=== PATIENT | male | born 1960 | race Caucasian/White ===

== ENCOUNTER → 2018-03-21 | Outpatient (CLI) | payer OTHER ==
--- NOTE | 2018-03-21 11:55 | XR ---
EXAMINATION TYPE: XR chest 2V DATE OF EXAM: 03/21/2018 COMPARISON: NONE TECHNIQUE: PA and lateral views submitted. HISTORY: Chest pain FINDINGS: The lungs are clear and there is no pneumothorax, pleural effusion, or focal pneumonia. [facility]. No overt failure. Degenerative change of the spine. Hyperinflation suggests COPD. IMPRESSION: 1. No acute process.
== END | disposition home or self-care (01) ==
LOC: RADXRMAIN 11:27
PROVIDERS: ATTEND Nurse Practitioner Adult Health
DX: C18.2 Malignant neoplasm of ascending colon (principal); N42.89 Other specified disorders of prostate
CPT/HCPCS: 71046

== ENCOUNTER 2018-05-16 10:44 | Day surgery (SDC) | payer OTHER ==
[2018-05-14 11:07] VITALS: BMI 23.6
[~2018-05-16 10:44] MED LIST: ALPRAZolam 0.25 MG TAB PO PRN; ALPRAZolam 0.5 MG TAB PO PRN; ASPIRIN 325 MG TAB PO STA; ATORVASTATIN 80 MG TAB PO STA; NITROGLYCERIN SL TABS 0.4 MG TAB SUBLINGUAL PRN; SODIUM CHLORIDE 0.9% 1,000 ML in EMPTY BAG 1 BAG IV ONE
[2018-05-16] MEDS ORDERED: LIDOCAINE 1% INJ 10MG/ML (20 ML MDV) ONE (11:54)
[2018-05-16] MEDS ORDERED: MIDAZOLAM 2 MG/2 ML VIAL ONE (11:54)
[2018-05-16] MEDS ORDERED: fentaNYL (PF) 50 MCG/ML 2 ML AMP ONE (11:54)
[2018-05-16 11:55] LABS: Anion Gap 11 mmol/L; Blood Urea Nitrogen 15 mg/dL (9-20); Calcium 9.3 mg/dL (8.4-10.2); Carbon Dioxide 23 mmol/L (22-30); Chloride 108 mmol/L (98-107); Glucose 97 mg/dL (74-99); Sodium 142 mmol/L (137-145)
[2018-05-16] MEDS ORDERED: fentaNYL (PF) 50 MCG/ML 2 ML AMP IV ONE (12:08)
[2018-05-16] MEDS: MIDAZOLAM 2 MG/2 ML VIAL IV ONE ×2 (12:08→12:11)
[2018-05-16] MEDS ORDERED: LIDOCAINE 1% INJ 10MG/ML (20 ML MDV) SQ ONE (12:12)
[2018-05-16] MEDS ORDERED: TICAGRELOR 90 MG TAB ONE (12:29)
[2018-05-16] MEDS ORDERED: BIVALIRUDIN BOLUS 250 MG/50 ML IV ONE (12:31)
[2018-05-16] MEDS ORDERED: TICAGRELOR 90 MG TAB PO ONE (12:31)
[2018-05-16] MEDS ORDERED: BIVALIRUDIN 250 MG in SODIUM CHLORIDE 0.9% 50 ML IV ONE (12:31)
[2018-05-16] MEDS ORDERED: NITROGLYCERIN 1000MCG/10ML SYRINGE INTRACORON ONE (12:39)
[2018-05-16] MEDS ORDERED: IOPAMIDOL-370 125ML BTL INJ ONE (12:43)
[2018-05-16] MEDS ORDERED: NITROGLYCERIN 1000MCG/10ML SYRINGE INTRAARTER ONE (12:43)
[2018-05-16] MEDS ORDERED: IOPAMIDOL-370 50ML BTL INJ ONE (12:43)
[2018-05-16] MEDS ORDERED: PROCHLORPERAZINE 10 MG TAB PO PRN (12:55)
[2018-05-16] MEDS ORDERED: NITROGLYCERIN SL TABS 0.4 MG TAB SUBLINGUAL PRN ×2 (12:55→12:56)
[2018-05-16] MEDS ORDERED: DIPHENOX-ATROP 2.5-0.025 MG 1 EACH TAB PO PRN (12:55)
[2018-05-16] MEDS ORDERED: diphenhydrAMINE 25 MG CAP PO PRN (12:55)
[2018-05-16] MEDS ORDERED: RX INFO: IV CONTRAST WAS GIVEN 1 EACH MISC MISCELLANE PRN (12:56)
[2018-05-16] MEDS ORDERED: ZOLPIDEM 5 MG TAB PO PRN (12:56)
[2018-05-16] MEDS ORDERED: MAG HYDROX/AL HYDROX/SIMETH 30 ML CUP PO PRN (12:56)
[2018-05-16] MEDS ORDERED: ATROPINE SULFATE 0.1 MG/ML 10ML SYRINGE IV PRN (12:56)
[2018-05-16] MEDS ORDERED: diphenhydrAMINE 50 MG/ML 1 ML VIAL ONE (12:57)
[2018-05-16] MEDS ORDERED: LIDOCAINE-PRILOCAINE 2.5-2.5% CREAM 5 GM TUBE TOPICAL PRN (13:00)
[2018-05-16] MEDS ORDERED: SODIUM CHLORIDE 0.9% 1,000 ML IV SCH (13:00)
[2018-05-16] MEDS ORDERED: diphenhydrAMINE 50 MG/ML 1 ML VIAL IVP ONE (13:04)
[2018-05-16] MEDS ORDERED: ACETAMINOPHEN IV (For NPO) 1,000 MG in EMPTY BAG 1 BAG IVPB ONE (13:30)
--- NOTE | 2018-05-16 17:01 | CC ---
CARDIAC CATHETERIZATION REPORT Mr. Rees was seen in the office for evaluation of chest pain. This patient had been having intermittent chest discomfort after 5-FU injection. Patient has been diagnosed to have colon cancer. Stress test showed evidence of basal ischemia. In view of that, the patient was recommended cardiac catheterization for definitive diagnosis. PROCEDURE: The right groin was prepped and draped in the usual manner and the skin was infiltrated with 2% Xylocaine. The right femoral artery was entered using Seldinger technique. A #6 Korean sheath was placed in. Selective coronary angiography was then performed in multiple projections and the left ventricular pressures were obtained. The patient tolerated the procedure well. Moderate sedation was used. Total sedation time was 14 minutes. HEMODYNAMICS: The left ventricular end-diastolic pressure was 8 to 12 mmHg prior to angiography. No gradient was noted across the aortic valve. SELECTIVE CORONARY ANGIOGRAPHY: Left main coronary artery is a good-caliber blood vessel. LAD is a good caliber blood vessel and gives rise to a good-sized diagonal branch. Distal LAD way near the apex has a 70% stenosis, beyond which it was a very limited distribution. Circumflex coronary artery is a good-caliber blood vessel. Very proximal circumflex has about 50% stenosis. Then there is another area of 99% stenosis before it bifurcates into the obtuse marginal branch and distal circumflex branch. Right coronary artery has mild disease. There is retrograde filling of the obtuse marginal branch noted. FINAL IMPRESSION: This study shows very proximal circumflex coronary artery 50% stenosis. Subsequent to that, there is a 99% subtotal stenosis of circumflex coronary artery. The distal LAD way near the apex has an 80% stenosis with a limited distribution beyond the stenosis. Right coronary artery has mild irregularity. RECOMMENDATIONS: We will proceed with a stent to the circumflex coronary artery. MMODL / IJN: [id number] /
[2018-05-16] MEDS: PANTOPRAZOLE 40 MG TABLET PO SCH (17:21)
[2018-05-16] MEDS ORDERED: LORATADINE 10 MG TAB PO SCH (21:00)
[2018-05-16] MEDS ORDERED: diphenhydrAMINE 25 MG CAP PO SCH (21:00)
[2018-05-16] MEDS ORDERED: ATORVASTATIN 80 MG TAB PO SCH (21:00)
[2018-05-16] MEDS ORDERED: ACETAMINOPHEN TAB 500 MG TAB PO SCH (21:00)
[2018-05-16] MEDS: TICAGRELOR 90 MG TAB PO SCH (21:21)
[2018-05-17] MEDS: PANTOPRAZOLE 40 MG TABLET PO SCH (05:58)
[2018-05-17 06:22] LABS: Anion Gap 9 mmol/L; Blood Urea Nitrogen 13 mg/dL (9-20); Calcium 8.9 mg/dL (8.4-10.2); Carbon Dioxide 20 mmol/L (22-30); Chloride 109 mmol/L (98-107); Glucose 97 mg/dL (74-99); Potassium 4.1 mmol/L (3.5-5.1); Sodium 138 mmol/L (137-145)
[2018-05-17 06:50] LABS: Anisocytosis Slight; Basophils % (A) 0 %; Eosinophils # (A) 0.1 k/uL (0-0.7); Eosinophils % (A) 2 %; HCT 43.8 % (39.0-53.0); HGB 14.5 gm/dL (13.0-17.5); Lymphocytes # (A) 2.3 k/uL (1.0-4.8); Lymphocytes % (A) 48 %; MCH 30.1 pg (25.0-35.0); MCHC 33.1 g/dL (31.0-37.0); MCV 90.9 fL (80.0-100.0); Mean Platelet Volume 7.3; Monocytes # (A) 0.4 k/uL (0-1.0); Monocytes % (A) 8 %; Neutrophils # (A) 1.8 k/uL (1.3-7.7); Neutrophils % (A) 38 %; Platelet Count 118 k/uL (150-450); RBC 4.82 m/uL (4.30-5.90); RDW 17.4 % (11.5-15.5); WBC 4.8 k/uL (3.8-10.6)
[2018-05-17 07:49] VITALS: RESP 18
[2018-05-17] MEDS: TICAGRELOR 90 MG TAB PO SCH (07:56)
[2018-05-17] MEDS ORDERED: ASPIRIN 81 MG PO SCH (09:00)
[2018-05-17] MEDS ORDERED: ACYCLOVIR 200 MG CAP PO SCH (09:00)
--- NOTE | 2018-05-17 11:06 | PTCA ---
PERCUTANEOUSTRANS CORORONARY ANGIOGRAPHY DATE OF SERVICE: May 16, 2018 PERFORMING PHYSICIAN: Didier Osei MD, assistant professor of drama. PROCEDURE PERFORMED: Successful stenting of the mid left circumflex using 2.75 x 15 mm Xience PINKY with good angiographic results. INDICATION: This is a pleasant 57-year-old gentleman who sees Dr. Bee as an outpatient who was experiencing chest discomfort and underwent myocardial perfusion imaging, stress test that showed inferolateral ischemia. A heart catheterization was recommended. The patient underwent heart catheterization by Dr. Bee earlier today and that revealed severe critical disease involving the mid left circumflex. APPROACH: Right common femoral artery. COMPLICATION: None. LEVEL OF SEDATION: Moderate with sedation length of 20 minutes. PROCEDURE DESCRIPTION: After diagnostic heart catheterization was performed by Dr. Bee and after reviewing the angiogram, we decided to pursue with intervention on the left circumflex. Anticoagulation was initiated using Angiomax. Subsequently I did engage the left main using an XP35 guide. I did wire the left circumflex using a whisper wire. Subsequently I did balloon angioplasty using 2.0 x 12 mm balloon before I deployed 2.75 x 15 mm Xience PINKY where the stent was positioned under fluoroscopy guidance and deployed under 10 atmospheres for 20 seconds. The following angiogram showed good angiographic results and the procedure was completed without any complication. POSTPROCEDURE MANAGEMENT: 1. Dual anti-platelet therapy. 2. Risk factor modifications. 3. Follow up with the patient. MMJUDITH / MAIKOL: [id number] /
[2018-05-17 11:19] VITALS: BP 146/69; PULSE 60; TEMP 97.1
--- NOTE | 2018-05-17 12:27 | P.PN ---
Subjective Progress Note Date: 05/17/18 Discharge note This is a 57-year-old gentleman with colon cancer, who developed chest discomfort after 5FU injection. This reason he was brought to the hospital to undergo cardiac catheterization. Cardiac catheterization showed very proximal circumflex coronary artery 50% stenosis. Subsequent to that he was a 99% subtotal stenosis of the circumflex artery. Distal LAD near the apex had an 80% stenosis with a limited distribution beyond the stenosis. Right coronary artery and mild irregularity. Patient underwent angioplasty and stenting of the circumflex artery. Seen and examined this morning, denies any chest pain or difficulty in breathing. EKG shows normal sinus Rhythm with no changes from post-PCI. White blood cell count is normal, hemoglobin 14.5, platelet count 118. Sodium 138, potassium 4.1, BUN/creatinine 13, creatinine 0.9. Objective - Vital Signs Vital signs: Vital Signs Temp 97.1 F L 05/17/18 11:18 Pulse 60 05/17/18 11:18 Resp 18 05/17/18 11:18 BP 146/69 05/17/18 11:18 Pulse Ox 97 05/17/18 11:18 Intake & Output 05/16/18 05/17/18 05/17/18 18:59 06:59 18:59 Intake Total 328.4 480 236 Balance 328.4 480 236 Weight 84.368 kg 82.3 kg Intake: IV 148.4 Oral 180 480 236 Other: Voiding Method Toilet Urinal # Voids 1 - Exam Physical examination HEENT normal Lungs clear to auscultation and percussion Heart S1-S2 normal, no murmur or gallop. Right groin soft, no evidence of any hematoma, no bruit heard Abdomen is soft, nontender, bowel sounds heard Extremities reveal 2+ peripheral pulses with no evidence of any peripheral edema. - Labs CBC & Chem 7: 05/17/18 05:49 05/17/18 05:49 Labs: Abnormal Lab Results - Last 24 Hours (Table) 05/17/18 05/17/18 Range/Units 05:49 05:49 RDW 17.4 H (11.5-15.5) % Plt Count 118 L (150-450) k/uL Chloride 109 H (98-107) mmol/L Carbon Dioxide 20 L (22-30) mmol/L Assessment and Plan Plan: Assessment and plan #1 status post angioplasty with stent placement of the circumflex artery #2: Colon cancer status post 5-FU injection #3 hyperlipidemia #4 nicotine dependence Plan Patient may be able to be discharged home today. We'll make follow-up appointment in the office in one week's time. He will be discharged home on aspirin 81 mg daily, Lipitor 80 mg daily, Effient 10 mg daily, Lopressor 12-1/2 mg one tablet by mouth twice a day. sublingual nitroglycerin as needed for chest pain.
[2018-05-17] MEDS ORDERED: METOPROLOL TARTRATE 12.5 MG TAB PO SCH (12:30)
== END 2018-05-17 12:30 | disposition home or self-care (01) ==
LOC: CATHCVL 10:44 → 6SEL 12:48 → CATHCVL 05-17 12:30
PROVIDERS: ATTEND Internal Medicine Cardiovascular Disease
DX: I25.10 Atherosclerotic heart disease of native coronary artery without angina pectoris (principal); R00.1 Bradycardia, unspecified; R94.39 Abnormal result of other cardiovascular function study; C18.9 Malignant neoplasm of colon, unspecified; Z90.49 Acquired absence of other specified parts of digestive tract; Z92.21 Personal history of antineoplastic chemotherapy; E78.5 Hyperlipidemia, unspecified; Z82.49 Family history of ischemic heart disease and other diseases of the circulatory system; F17.210 Nicotine dependence, cigarettes, uncomplicated; Z79.899 Other long term (current) drug therapy; Z88.6 Allergy status to analgesic agent; Z88.1 Allergy status to other antibiotic agents; Z88.8 Allergy status to other drugs, medicaments and biological substances
CPT/HCPCS: 94760; 93458; 80048 ×2; 85025; C9600; C1769 ×2; C1725; C1887; C1894; C1874; C1760; J2250; J1200; J2001; J3010; J0583; J0131; Q9967 ×2

== ENCOUNTER 2018-05-20 11:07 | Inpatient (IN) | payer OTHER ==
[2018-05-20] MEDS ORDERED: KETOROLAC 60 MG/2 ML VIAL IVP STA (11:37)
[2018-05-20] MEDS ORDERED: HYDROmorphone 0.5 MG/0.5 ML SYRINGE IVP STA ×2 (11:38→15:30)
[2018-05-20] MEDS ORDERED: DIPH,PERTUS(ACELL)TETVAC-LF 0.5 ML VIAL IM ONE (11:38)
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
--- NOTE | 2018-05-20 12:31 | XR ---
EXAMINATION TYPE: XR chest 2V, XR sternum DATE OF EXAM: 05/20/2018 COMPARISON: Prior chest x-ray 03/21/2018 HISTORY: Difficulty breathing TECHNIQUE: Frontal and lateral views of the chest are obtained. 2 views of the sternum on 3 images. FINDINGS: There is no focal air space opacity, pleural effusion, or pneumothorax seen. The cardiac silhouette size is within normal limits. There is a port in the right pectoral region, distal tip of the catheter coursing towards the superior vena cava region. The osseous structures are remarkable f or a sternal fracture with displacement. IMPRESSION: No acute cardiopulmonary process. Displaced sternal fracture
[2018-05-20 12:45] LABS: ALT 44 U/L (21-72); AST 47 U/L (17-59); Albumin 4.1 g/dL (3.5-5.0); Alkaline Phosphatase 106 U/L (38-126); Anion Gap 8 mmol/L; Blood Urea Nitrogen 18 mg/dL (9-20); Calcium 9.1 mg/dL (8.4-10.2); Carbon Dioxide 23 mmol/L (22-30); Chloride 107 mmol/L (98-107); Glucose 91 mg/dL (74-99); Potassium 4.4 mmol/L (3.5-5.1); Sodium 138 mmol/L (137-145); Total Bilirubin 0.8 mg/dL (0.2-1.3); Total Protein 7.2 g/dL (6.3-8.2)
[2018-05-20 13:01] LABS: Anisocytosis Slight; Basophils % (A) 1 %; Eosinophils # (A) 0.1 k/uL (0-0.7); Eosinophils % (A) 1 %; HCT 43.2 % (39.0-53.0); HGB 14.8 gm/dL (13.0-17.5); Lymphocytes # (A) 1.7 k/uL (1.0-4.8); Lymphocytes % (A) 24 %; MCH 31.2 pg (25.0-35.0); MCHC 34.2 g/dL (31.0-37.0); MCV 91.3 fL (80.0-100.0); Mean Platelet Volume 7.6; Monocytes # (A) 0.5 k/uL (0-1.0); Monocytes % (A) 8 %; Neutrophils # (A) 4.4 k/uL (1.3-7.7); Neutrophils % (A) 63 %; RBC 4.73 m/uL (4.30-5.90); RDW 17.5 % (11.5-15.5); WBC 6.9 k/uL (3.8-10.6)
[2018-05-20 13:11] LABS: Creatine Kinase MB 2.1 ng/mL (0.0-2.4); Troponin I 0.023 ng/mL (0.000-0.034)
[2018-05-20 13:30] LABS: Platelet Count 90 k/uL (150-450); Poikilocytosis (M) Present
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
[2018-05-20] MEDS ORDERED: NALOXONE 0.4 MG/ML 1 ML VIAL IV PRN (15:50)
[2018-05-20] MEDS ORDERED: HYDROmorphone 0.5 MG/0.5 ML SYRINGE IVP PRN (15:50)
[2018-05-20 16:55] LABS: Glucose,Whole Blood 103 mg/dL (75-99)
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
[2018-05-20] MEDS ORDERED: METHOCARBAMOL 750 MG TAB PO PRN (17:55)
--- NOTE | 2018-05-20 18:29 | ECHOF ---
Referral Reason:Mediastinal hematoma MEASUREMENTS -------- HEIGHT: 188.0 cm WEIGHT: 82.6 kg BP: 141/84 IVSd: 1.0 cm (0.6 - 1.1) LVIDd: 4.2 cm (3.9 - 5.3) LVPWd: 1.0 cm (0.6 - 1.1) IVSs: 1.3 cm LVIDs: 2.7 cm LVPWs: 1.3 cm LAESV Index (A-L): 19.68 ml/m Ao Diam: 3.1 cm (2.0 - 3.7) MV E Elías: 0.65 m/s MV DecT: 306 ms MV A Elías: 0.61 m/s MV E/A Ratio: 1.07 RAP: 5.00 mmHg RVSP: 10.33 mmHg FINDINGS -------- Resting bradycardia (HR<60bpm). This was a technically adequate study. The left ventricular size is normal. Left ventricular wall thickness is normal. Overall left vent ricular systolic function is normal with, an EF between 55 - 60 %. The right ventricle is normal in size and function. Normal LA size by volume 22+/-6 ml/m2. The right atrium is normal in size. There is mild aortic valve sclerosis. There is no evidence of aortic regurgitation. There is no e vidence of aortic stenosis. Mild mitral annular calcification present. There is trace to mild mitral regurgitation. Trace tricuspid regurgitation present. Right ventricular systolic pressure is normal at < 35 mmHg. There is no evidence of pulmonary hypertension. The pulmonic valve was not well visualized. The aortic root size is normal. Normal inferior vena cava with normal inspiratory collapse consistent with estimated right atrial pre ssure of 5 mmHg. There is no pericardial effusion. CONCLUSIONS -------- 1. Resting bradycardia (HR<60bpm). 2. This was a technically adequate study. 3. The left ventricular size is normal. 4. Left ventricular wall thickness is normal. 5. Overall left ventricular systolic function is normal with, an EF between 55 - 60 %. 6. Normal LA size by volume 22+/-6 ml/m2. 7. There is mild aortic valve sclerosis. 8. Mild mitral annular calcification present. 9. There is trace to mild mitral regurgitation. 10. Trace tricuspid regurgitation present. 11. Right ventricular systolic pressure is normal at < 35 mmHg. 12. There is no evidence of pulmonary hypertension. 13. The pulmonic valve was not well visualized. 14. The aortic root size is normal. 15. There is no pericardial effusion. SQL DATA ARCHITECT: Nigel Colvin RDCS
[2018-05-20] MEDS ORDERED: DIPHENOX-ATROP 2.5-0.025 MG 1 EACH TAB PO PRN (18:34)
[2018-05-20] MEDS ORDERED: diphenhydrAMINE 25 MG CAP PO PRN (18:34)
[2018-05-20] MEDS ORDERED: NITROGLYCERIN SL TABS 0.4 MG TAB SUBLINGUAL PRN (18:34)
[2018-05-20] MEDS ORDERED: PROCHLORPERAZINE 10 MG TAB PO PRN (18:34)
[2018-05-20] MEDS ORDERED: LIDOCAINE-PRILOCAINE 2.5-2.5% CREAM 5 GM TUBE TOPICAL SCH (18:45)
[2018-05-20] MEDS ORDERED: MELATONIN 3 MG TABLET PO SCH (21:00)
[2018-05-20] MEDS ORDERED: ATORVASTATIN 80 MG TAB PO SCH (21:00)
[2018-05-20] MEDS: METOPROLOL TARTRATE 12.5 MG TAB PO SCH (21:47)
[2018-05-21] MEDS: HYDROcodone/APAP 5-325MG 1 EACH TAB PO PRN ×2 (00:19→06:25)
[2018-05-21 06:43] LABS: Partial Thromboplastin Time 24.1 sec (22.0-30.0); Prothrombin Time 9.8 sec (9.0-12.0)
[2018-05-21 06:46] LABS: ALT 42 U/L (21-72); AST 45 U/L (17-59); Alkaline Phosphatase 93 U/L (38-126); Anion Gap 9 mmol/L; Blood Urea Nitrogen 18 mg/dL (9-20); Carbon Dioxide 28 mmol/L (22-30); Chloride 102 mmol/L (98-107); Glucose 90 mg/dL (74-99); Potassium 4.9 mmol/L (3.5-5.1); Sodium 139 mmol/L (137-145); Total Bilirubin 0.8 mg/dL (0.2-1.3); Total Protein 6.9 g/dL (6.3-8.2)
[2018-05-21 07:20] LABS: Anisocytosis Slight; Basophils % (A) 1 %; Eosinophils # (A) 0.1 k/uL (0-0.7); Eosinophils % (A) 2 %; HCT 43.7 % (39.0-53.0); HGB 14.4 gm/dL (13.0-17.5); Lymphocytes # (A) 3.3 k/uL (1.0-4.8); Lymphocytes % (A) 39 %; MCH 30.4 pg (25.0-35.0); MCHC 32.9 g/dL (31.0-37.0); MCV 92.4 fL (80.0-100.0); Mean Platelet Volume 7.6; Monocytes # (A) 0.8 k/uL (0-1.0); Monocytes % (A) 10 %; Neutrophils # (A) 3.7 k/uL (1.3-7.7); Neutrophils % (A) 44 %; RBC 4.73 m/uL (4.30-5.90); RDW 17.5 % (11.5-15.5); WBC 8.3 k/uL (3.8-10.6)
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
[2018-05-21] MEDS ORDERED: PANTOPRAZOLE 40 MG TABLET PO SCH (07:30)
[2018-05-21 07:33] LABS: Platelet Count 86 k/uL (150-450)
--- NOTE | 2018-05-21 08:19 | XR ---
EXAMINATION TYPE: XR chest 2V DATE OF EXAM: 05/21/2018 COMPARISON: 05/20/2018 TECHNIQUE: PA and lateral views submitted. HISTORY: Sternal fracture FINDINGS: The lungs are clear and there is no pneumothorax, pleural effusion, or focal pneumonia. Mediport ca theter noted with biapical pleural thickening. No overt failure. Deformity of the sternum is stable. Hypertrophic and degenerative change of the spine. IMPRESSION: 1. Stable-appearing sternal fracture.
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
[2018-05-21] MEDS: METOPROLOL TARTRATE 12.5 MG TAB PO SCH (08:38)
[2018-05-21 08:56] VITALS: BP 130/62; PULSE 57; RESP 16; TEMP 97.2
[2018-05-21] MEDS ORDERED: NICOTINE 21MG/24HR PATCH TRANSDERM SCH (09:00)
[2018-05-21] MEDS ORDERED: ACYCLOVIR 200 MG CAP PO SCH (09:00)
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
[2018-05-21] MEDS ORDERED: PNEUMOCOCCAL VACC-PNEUMOVAX 23 25 MCG/0.5 ML VIAL IM ONE (09:41)
[2018-05-21] MEDS ORDERED: ASPIRIN 81 MG PO SCH (10:30)
[2018-05-21 10:35] VITALS: BMI 23.7
[2018-05-21] MEDS ORDERED: TICAGRELOR 90 MG TAB PO SCH (11:00)
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
== END 2018-05-21 12:50 | disposition home or self-care (01) | DRG 184 ==
LOC: EC 11:07 → 6ICU 15:50 → 6SEL 18:48
PROVIDERS: ADMIT Student in an Organized Health Care Education/Training Program; ATTEND Student in an Organized Health Care Education/Training Program
PROC: 3E0234Z Introduction of Serum, Toxoid and Vaccine into Muscle, Percutaneous Approach (ICD-10-PCS; principal; 2018-05-20)
PROC: 3E0234Z Introduction of Serum, Toxoid and Vaccine into Muscle, Percutaneous Approach (ICD-10-PCS; 2018-05-21)
DX: S22.22XA Fracture of body of sternum, initial encounter for closed fracture (principal); S27.892A Contusion of other specified intrathoracic organs, initial encounter; C18.2 Malignant neoplasm of ascending colon; D69.59 Other secondary thrombocytopenia; T45.1X5A Adverse effect of antineoplastic and immunosuppressive drugs, initial encounter; S80.812A Abrasion, left lower leg, initial encounter; I10 Essential (primary) hypertension; Z23 Encounter for immunization; E78.5 Hyperlipidemia, unspecified; E55.9 Vitamin D deficiency, unspecified; K21.9 Gastro-esophageal reflux disease without esophagitis; I25.10 Atherosclerotic heart disease of native coronary artery without angina pectoris; F17.210 Nicotine dependence, cigarettes, uncomplicated; Z71.6 Tobacco abuse counseling; Z79.82 Long term (current) use of aspirin; Z79.01 Long term (current) use of anticoagulants; Z79.899 Other long term (current) drug therapy; Z92.21 Personal history of antineoplastic chemotherapy; Z90.49 Acquired absence of other specified parts of digestive tract; Z95.5 Presence of coronary angioplasty implant and graft; Z88.6 Allergy status to analgesic agent; Z88.1 Allergy status to other antibiotic agents; Z88.8 Allergy status to other drugs, medicaments and biological substances; Z91.048 Other nonmedicinal substance allergy status; Z80.7 Family history of other malignant neoplasms of lymphoid, hematopoietic and related tissues; Z80.0 Family history of malignant neoplasm of digestive organs; Z80.8 Family history of malignant neoplasm of other organs or systems; Z82.3 Family history of stroke; Z82.49 Family history of ischemic heart disease and other diseases of the circulatory system; Z82.5 Family history of asthma and other chronic lower respiratory diseases; Z80.41 Family history of malignant neoplasm of ovary; V44.5XXA Car driver injured in collision with heavy transport vehicle or bus in traffic accident, initial encounter; Y92.414 Local residential or business street as the place of occurrence of the external cause
CPT/HCPCS: 36415; 71046; 71120; 71260; 74177; 80053; 82550; 82553; 84484; 85025; 85610; 85730; 90471; 90715; 90732; 93005; 93306; 96374; 96376; 99285

== ENCOUNTER → 2018-08-14 | Outpatient (CLI) | payer OTHER ==
--- NOTE | 2018-08-14 12:59 | XR ---
EXAMINATION TYPE: XR foot complete RT DATE OF EXAM: 08/14/2018 COMPARISON: NONE HISTORY: 57 year-old male lateral right foot pain after fall TECHNIQUE: 3 views FINDINGS: Corticated bone fragment proximal to the fifth metatarsal base likely represents chronic ununited fra cture fragment from remote injury. This can be correlated with patient's history. Tiny plantar calcan eal spur. No acute fracture, subluxation, or dislocation seen. IMPRESSION: Old injury at the base of the fifth metatarsal with chronic ununited bone fragment. No acute osseous abnormality seen.
== END | disposition home or self-care (01) ==
LOC: RADXRMAIN 11:04
PROVIDERS: ATTEND Family Medicine
DX: M79.671 Pain in right foot (principal)

== ENCOUNTER → 2018-08-14 | Outpatient (CLI) | payer OTHER ==
[2018-08-14 11:13] LABS: Blood Urea Nitrogen 15 mg/dL (9-20)
--- NOTE | 2018-08-14 13:29 | CT ---
EXAMINATION TYPE: CT abdomen pelvis w con DATE OF EXAM: 08/14/2018 COMPARISON: 05/20/2018 HISTORY: 57-year-old male Follow up on colon cancer TECHNIQUE: Contiguous axial scanning of the abdomen and pelvis following administration of 100 ml Iso ligia 300 IV contrast. Delayed images through the kidneys and coronal/sagittal reconstructions perform ed. CT DLP: 599.9 mGycm Automated exposure control for dose reduction was used. FINDINGS: Heart normal size without pericardial effusion. Strandy atelectasis at the posterior lung bases witho ut pleural effusion. No focal liver lesion or biliary ductal dilatation. Portal venous system is patent. Gallbladder, adrenal glands, right kidney, spleen, and pancreas appear within normal limits. Stable 1.9 cm cyst medial left kidney. Moderate to severe atherosclerotic plaque and calcifications within the infrarenal abdominal aorta wi th fusiform ectasia measuring up to 2.7 cm. There is also focal ulcerating plaque at this level. The previously described peritoneal nodularity along the right flank below the right liver lobe remai ns unchanged. No mesenteric or retroperitoneal lymphadenopathy. No dilated small bowel, free fluid, or free air. Oral contrast progressed to the rectum. There is mil d sigmoid diverticular change. Bladder is urine distended. Prostate gland enlargement 5.1 cm wide. There is heterogeneous areas of e nhancement within, for example, towards the left on axial image 82. No abnormal fluid collection in t he pelvis or pelvic lymphadenopathy. Bones: Mild degenerative changes at the hips. No osseous destructive process. IMPRESSION: 1. STABLE PERITONEAL NODULARITY ALONG THE RIGHT FLANK BELOW THE RIGHT LIVER LOBE. THIS IS UNCHANGED F OR NEARLY 3 MONTHS. IF ANY OUTSIDE PRIOR EXAMS ARE AVAILABLE, MORE LONG-TERM STABILITY CAN BE DETERMI LIVIA. OTHERWISE, CONSIDER ADDITIONAL FOLLOW-UP. 2. PROSTATOMEGALY (5.1 CM WIDE) WITH HETEROGENEOUS AREAS OF ENHANCEMENT, THE CHEST TOWARDS THE LEFT O N AXIAL IMAGE 82. CORRELATE WITH PSA VALUES AND PHYSICAL EXAM FINDINGS.
== END | disposition home or self-care (01) ==
LOC: RADPROMAIN 10:26
PROVIDERS: ATTEND Internal Medicine Hematology & Oncology
DX: C18.2 Malignant neoplasm of ascending colon (principal); E78.2 Mixed hyperlipidemia; N40.0 Benign prostatic hyperplasia without lower urinary tract symptoms
CPT/HCPCS: 82565; 84520; 83704; 74177; J1642; Q9967

== ENCOUNTER → 2018-12-02 | Outpatient (CLI) | payer OTHER ==
--- NOTE | 2018-12-03 09:05 | CT ---
EXAMINATION TYPE: CT abdomen pelvis w con DATE OF EXAM: 12/02/2018 COMPARISON: 08/14/2018 HISTORY: Benign prostatic hyperplasia w/o lower UT sx. Hx colon ca. Prior colonic resection and chemo therapy in 2018. No history of radiation. CT DLP: 615.50 mGycm Automated exposure control for dose reduction was used. TECHNIQUE: Helical acquisition of images was performed from the lung bases through the pelvis. CONTRAST: Performed with Oral Contrast and with IV Contrast, patient injected with 100 mL of Isovue 300. FINDINGS: LUNG BASES: No significant abnormality is appreciated. LIVER/GB: There is an unchanged left hepatic lobe 4 mm hypoattenuating lesion on series 3 image 18 in comparison to the prior of 08/14/2018 that is too small to accurately characterize. Remainder the erlin er parenchyma enhances homogeneously. No cholelithiasis. PANCREAS: No pancreatic ductal dilatation. No suspicious pancreatic enhancement. SPLEEN: No significant abnormality is seen. ADRENALS: No nodularity or thickening is seen. KIDNEYS: There is a 2.0 cm left midpole renal cyst. No hydronephrosis of either kidney. Remainder the kidneys enhance symmetrically. FREE AIR: No free air is visualized. ADENOPATHY: No greater than 1 cm short axis lymph node are seen within the abdomen or pelvis. A righ t para-aortic retroperitoneal lymph node just below the left renal vein measures 8 mm in short axis a nd is similar to the prior measured on series 3 image 25. REPRODUCTIVE ORGANS: Prostate gland is enlarged and heterogenous measuring 5.7 cm in transverse dimen tricia. There is slight hyperemia of the bilateral posterior and posterior lateral peripheral zone apic es. This finding is nonspecific on CT. URINARY BLADDER: No significant abnormality is seen. OSSEOUS STRUCTURES: Mild multilevel degenerative changes of the thoracolumbar spine are noted. BOWEL: There has been partial resection of the right hemicolon. No dilated large or small bowel are seen. OTHER: Moderate to severe calcific and noncalcific atheromatous plaquing is seen of the abdominal aor ta and its branches. Focal chronic dissection flap is seen of the infrarenal abdominal aorta on serie s 3 image 39, unchanged from the prior when measured in a similar fashion on the oblique angle at thi s level there is an unchanged caliber of the infrarenal abdominal aorta measuring 2.7 cm, not aneurys mal but ectatic. There are similar size of the previously seen approximately 9 mm soft tissue nodule lateral to the in ferior right hepatic lobe on series 3 image 38. IMPRESSION: 1. CONTINUED STABILITY OF THE PERITONEAL SOFT TISSUE NODULE ALONG THE RIGHT FLANK. CONTINUED FOLLOW-U P IS RECOMMENDED IN THIS PATIENT WITH COLON CARCINOMA TO EXCLUDE PERITONEAL METASTASIS OR LYMPHATIC M ETASTASIS. 2. REDEMONSTRATION OF PROSTATIC GLAND ENLARGEMENT AND HETEROGENEITY WITH SIMILAR-APPEARING BILATERAL POSTERIOR LATERAL AND POSTERIOR PERIPHERAL ZONE APEX NONSPECIFIC ENHANCEMENT. 3. UNCHANGED SUBCENTIMETER TOO SMALL TO ACCURATELY CHARACTERIZE LEFT HEPATIC LOBE LESION (4 MM) AND B ENIGN-APPEARING LEFT RENAL CYST.
== END | disposition home or self-care (01) ==
LOC: RADCTMAIN 14:32
PROVIDERS: ATTEND Family Medicine
DX: N40.0 Benign prostatic hyperplasia without lower urinary tract symptoms (principal); N28.1 Cyst of kidney, acquired; C18.9 Malignant neoplasm of colon, unspecified
CPT/HCPCS: 74177; Q9967